=== PATIENT | male | born 1980 | race Caucasian/White ===

== ENCOUNTER 2019-06-06 20:09 | Emergency (ER) | payer OTHER ==
[2019-06-06] MEDS ORDERED: DEXAMETHASONE LIQUID 0.5 MG/5 ML 240 ML BULK BOTTLE PO ONE (20:32)
--- NOTE | 2019-06-06 20:32 | PDOC ---
Rapid Medical Evaluation Time Seen by Provider: 06/06/19 20:30 Medical Evaluation: 06/06/19 20:31 HPI: Irritation B UE from poison emily since 4 days ago PE: Rash B UE ORDERS:Decadron Discharge Disposition - Diagnosis Contact dermatitis - Referrals - Patient Instructions - Post Discharge Activity
[2019-06-06 20:44] VITALS: BP 115/74; PULSE 82; TEMP 98.8; BMI 42.5
[2019-06-06] MEDS ORDERED: DEXAMETHASONE SOD PHOSPHATE 10 MG/1 ML VIAL ONE (21:28)
--- NOTE | 2019-06-06 21:33 | PDOC ---
History of Present Illness - General Chief Complaint: Allergic Reaction Stated Complaint: ALLERGIC REACTION Time Seen by Provider: 06/06/19 20:30 History Source: Patient - History of Present Illness Occurred: reports: other Upper Extremity Pain Location: bilateral: other (b/l forearms) Past History - Past Medical History Allergies/Adverse Reactions: Allergies Allergy/AdvReac Type Severity Reaction Status Date / Time No Known Allergies Allergy Verified 06/06/19 20:35 Home Medications: Ambulatory Orders Betamethasone Dipropionate 15 gm TP BID #30 oint...g. 06/06/19 Diphenhydramine HCl [Benadryl -] 25 mg PO ASDIR #20 capsule 06/06/19 COPD: No - Suicide/Smoking/Psychosocial Hx Smoking History: Never smoked Have you smoked in the past 12 months: No Information on smoking cessation initiated: No Hx Alcohol Use: No Drug/Substance Use Hx: No Review of Systems - Review of Systems Constitutional: No: Fever Integumentary: Yes: Pruritus, Rash *Physical Exam - Vital Signs Last Vital Signs Temp Pulse Resp BP Pulse Ox 98.8 F 82 18 115/74 100 06/06/19 20:32 06/06/19 20:32 06/06/19 20:32 06/06/19 20:32 06/06/19 20:32 - Physical Exam General Appearance: Yes: Appropriately Dressed HEENT: positive: Normal Voice Neck: positive: Supple Respiratory/Chest: negative: Respiratory Distress Extremity: positive: Other (localized papules w/ vesicles throughout b/l UE, R>L ) Integumentary: positive: Dry, Warm Neurologic: positive: Fully Oriented, Alert, Normal Mood/Affect Medical Decision Making - Medical Decision Making 06/06/19 21:36 39 yo M, no hx, here w/ pruritic rash to b/l forearm x 4 days after exposure to known poison katja See exam Poison katja dermatitis Dose of decadron ordered from [facility] -dc w/ topical steroid -to return as needed 06/06/19 21:40 *DC/Admit/Observation/Transfer Diagnosis at time of Disposition: Poison katja dermatitis - Discharge Dispostion Disposition: HOME Condition at time of disposition: Good - Prescriptions Prescriptions: Betamethasone Dipropionate 15 gm TP BID #30 oint...g. Diphenhydramine HCl [Benadryl -] 25 mg PO ASDIR #20 capsule - Referrals - Patient Instructions Printed Discharge Instructions: DI for Poison Katja Allergy Additional Instructions: Take medication as directed Return for worsening of symptoms - Post Discharge Activity
== END 2019-06-06 21:36 | disposition home or self-care (01) ==
LOC: JERFT 20:09
DX: L23.7 Allergic contact dermatitis due to plants, except food (principal)
CPT/HCPCS: 99281-25